=== PATIENT | male | born 1985 | race Caucasian/White ===

== ENCOUNTER 2016-03-22 08:59 | Emergency (ER) | payer SELFPAY ==
[~2016-03-22] VITALS: Ht 167.6 cm; Wt 85.0 kg
[~2016-03-22 08:59] MED LIST: TRAM50 PO; Z.0.NO CURRENT MEDS
[2016-03-22 09:00] VITALS: BP 139/69; PULSE 70; RESP 16; TEMP 98.2; O2SAT 100
--- NOTE | 2016-03-22 09:23 | PD ---
HPI Chief Complaint: Skin Problem Time Seen by Provider: 09:22 Travel History International Travel<30 days: No Contact w/Intl Traveler<30days: No Traveled to known affect area: No History of Present Illness HPI 30-year-old male presents to the emergency Department with complaint of 2 open sores and peeling to his left middle finger 2 weeks. Works with [employer] and does not wear gloves. He has had multiple open sores and peeling to multiple fingers for the last 2 months. Denies paresthesias, loss of sensation, decreased range of motion, decreased strength to all fingers or extremities. Is up-to-date on his tetanus vaccination. Denies fever, chills , nausea, vomiting. Has been using Neosporin and Band-Aids to the affected areas with some improvement. Denies significant past medical history. No known allergies. No other modifying factors or associated signs and symptoms. History Past Medical Histgory Hx Cancer: No Social History Alcohol Use: Yes (OCCASSIONALLY) Tobacco Use: Yes (1 PPD, chewing ) Allergies-Medications (Allergen,Severity, Reaction): Coded Allergies: No Known Allergies (Verified , 08/23/09) Reported Meds & Prescriptions Reported Meds & Active Scripts Active Ultram (Tramadol HCl) 50 Mg Tab 1 Tab PO Q4-6HPRN FOR PAIN Reported No Current Meds (Miscellaneous Medication) [facility] Review of Systems Except as stated in HPI: all other systems reviewed are Neg Physical Exam Narrative GENERAL: Well-nourished, well-developed male patient, in no acute distress; afebrile, nontoxic-appearing SKIN: Warm and dry. Left middle finger with 2 wounds that appear to be consistent with superficial chemical erwin that are dry and healing; without erythema, edema, drainage; no signs of infection. The left middle finger and other multiple fingers on both hands are dry and with peeling skin; no signs of cellulitis or infection to any areas. HEAD: Atraumatic. Normocephalic. EYES: Pupils equal and round. No scleral icterus. No injection or drainage. ENT: Mucosa pink and moist. Airway patent. NECK: Trachea midline. CARDIOVASCULAR: Regular rate. RESPIRATORY: No accessory muscle use. GASTROINTESTINAL: Flat. MUSCULOSKELETAL: No obvious deformities. No clubbing. No cyanosis. No edema. NEUROLOGICAL: Awake and alert. Oriented 3. No obvious cranial nerve deficits. Motor grossly within normal limits. Normal speech. PSYCHIATRIC: Appropriate mood and affect; insight and judgment normal. Data Data Last Documented VS Vital Signs Date Time Temp Pulse Resp B/P Pulse Ox O2 Delivery O2 Flow Rate FiO2 03/22/16 09:14 78 88 03/22/16 09:00 98.2 139/69 100 Room Air MDM Medical Screen Exam Complete: Yes Emergency Medical Condition: No Differential Diagnosis Chemical skin burn, cellulitis, abrasion Narrative Course 30-year-old male physical exam consistent with 2 small areas to the left middle finger that are consistent with a chemical burn. The area and finger is without signs of infection and is dry and healing well. Patient is afebrile. He denies fever, chills, nausea, vomiting. Patient has multiple fingers that are dry and peeling secondary to using [place] while at work and not wearing gloves. I offered to provide the patient with wound care and declined at this time. Vital signs are stable and the patient is stable for outpatient follow-up and treatment. The patient has no urgent or emergent medical complaints. There is no emergent or urgent medical need at this time. I instructed the patient to follow up with their primary care provider. A medical screening exam was performed: At the time of evaluation the presenting medical condition was determined not to be of an emergent nature. The patient was given the option of receiving additional care, but declined. Patient was given options for additional community resources from which to obtain care. The Patient Has Been advised to seek medical attention for their presenting complaint. The patient has been advised to return to the ER at any time if an emergent condition develops. Primary Impression: Encounter for medical screening examination Condition: Stable Rohini Vallejo Mar 22, 2016 09:23
== END 2016-03-22 09:38 | disposition left against medical advice (07) ==
LOC: NEPB 08:59
DX: T60.3X1A Toxic effect of herbicides and fungicides, accidental (unintentional), initial encounter (principal); T23.422A Corrosion of unspecified degree of single left finger (nail) except thumb, initial encounter
CPT/HCPCS: 99281

== ENCOUNTER 2016-10-08 08:45 | Emergency (ER) | payer SELFPAY ==
[~2016-10-08] VITALS: Ht 167.6 cm; Wt 81.0 kg
[2016-10-08 08:48] VITALS: BP 135/61; PULSE 62; RESP 16; TEMP 97.3; O2SAT 100
--- NOTE | 2016-10-08 09:05 | PD ---
HPI Chief Complaint: Bite or Sting Time Seen by Provider: 08:57 Travel History International Travel<30 days: No Contact w/Intl Traveler<30days: No Traveled to known affect area: No History of Present Illness HPI This is a 31-year-old male who presents to the emergency department with swelling involving his left hand following having been stung by a wasp or bee yesterday around 3 PM. He continues to have some swelling today. He denies any shortness of breath or other symptoms. He took Benadryl last night but hasn 't taken anything today. PFSH Past Medical History Blood Disorders: No Depression: Yes Cancer: No Cardiovascular Problems: No Diminished Hearing: No Endocrine: No Gastrointestinal Disorders: No Genitourinary: No Immune Disorder: No Implanted Vascular Access Dvce: No Musculoskeletal: Yes ( SHOULDER - RIGHT NEEDS SURGERY) Neurologic: No Reproductive: No Respiratory: No Past Surgical History Abdominal Surgery: No Cardiac Surgery: No Neurologic Surgery: No Thoracic Surgery: No Other Surgery: No Social History Alcohol Use: Yes (OCCASSIONALLY) Tobacco Use: Yes (chewing ) Substance Use: Yes (history of marijuana, crack use) Allergies-Medications (Allergen,Severity, Reaction): Coded Allergies: No Known Allergies (Verified , 10/08/16) Reported Meds & Prescriptions Reported Meds & Active Scripts Active No Active Prescriptions or Reported Medications Review of Systems General / Constitutional: No: Fever, Chills Respiratory: No: Shortness of Breath Physical Exam Narrative GENERAL: Well-appearing, no acute distress, nontoxic SKIN: Swelling of the dorsal aspect of the left hand with a sting yousif proximal to the first MCP, no warmth or erythema. HEAD: Atraumatic. Normocephalic. ENT: No nasal bleeding or discharge. Moist mucous membranes VASCULAR: 2+ left radial pulse with normal capillary refill. MUSCULOSKELETAL: No obvious deformities. No clubbing. No cyanosis. No edema. NEUROLOGICAL: Awake and alert. No obvious cranial nerve deficits. Motor grossly within normal limits. Normal speech. PSYCHIATRIC: Appropriate mood and affect; insight and judgment normal. Data Data Last Documented VS Vital Signs Date Time Temp Pulse Resp B/P (MAP) Pulse Ox O2 Delivery O2 Flow Rate FiO2 10/08/16 08:56 16 10/08/16 08:48 97.3 62 135/61 (85) 100 MDM Medical Decision Making Medical Screen Exam Complete: Yes Emergency Medical Condition: No Differential Diagnosis wasp sting, bee sting, allergic reaction, cellulitis Narrative Course This is a 31-year-old male who presents with some swelling following beer wasp sting yesterday. He's been taking Benadryl for it. He has a benign exam. I don't think this reflects a medical emergency as he has no systemic signs of allergic reaction. Patient was medically screened. He was advised to return if he develops fever, chills or worsening swelling. He was given information regarding [facility]. Diagnosis Primary Impression: Encounter for medical screening examination Scripts No Active Prescriptions or Reported Meds Dulce Cano MD Oct 08, 2016 09:04
== END 2016-10-08 09:06 | disposition left against medical advice (07) ==
LOC: PHED 08:45
DX: R22.32 Localized swelling, mass and lump, left upper limb (principal); Z72.0 Tobacco use; Z86.59 Personal history of other mental and behavioral disorders; Z87.39 Personal history of other diseases of the musculoskeletal system and connective tissue; W57.XXXA Bitten or stung by nonvenomous insect and other nonvenomous arthropods, initial encounter
CPT/HCPCS: 99281

== ENCOUNTER 2017-03-08 17:17 | Emergency (ER) | payer SELFPAY ==
[~2017-03-08] VITALS: Ht 167.6 cm; Wt 81.7 kg
[2017-03-08 17:36] VITALS: BP 139/85; PULSE 74; RESP 16; TEMP 98.6; O2SAT 99
[2017-03-08] MEDS ORDERED: BACT800T5 PO (18:17)
[2017-03-08] MEDS ORDERED: CEPH-460 PO (18:17)
--- NOTE | 2017-03-08 18:19 | PD ---
HPI Chief Complaint: Skin Problem Time Seen by Provider: 18:11 Travel History International Travel<30 days: No Contact w/Intl Traveler<30days: No Traveled to known affect area: No History of Present Illness HPI 31-year-old male presents for evaluation of an area of skin redness to the posterior right ankle. He reports that 2 days ago he was punctured through his sock by a foreign. He reports that it appeared that he pulled the thorn out in its entirety. Since then he has SOME soreness in skin redness at the site of the puncture wound. Pain is a soreness which is worse with palpation or dorsiflexion. Denies any fevers, chills, purulent drainage, foreign body sensation. He has no other complaints at this time. PFSH Past Medical History Blood Disorders: No Depression: Yes Cancer: No Cardiovascular Problems: No Diminished Hearing: No Endocrine: No Gastrointestinal Disorders: No Genitourinary: No Immune Disorder: No Implanted Vascular Access Dvce: No Musculoskeletal: Yes ( SHOULDER - RIGHT NEEDS SURGERY) Neurologic: No Reproductive: No Respiratory: No Past Surgical History Abdominal Surgery: No Cardiac Surgery: No Neurologic Surgery: No Thoracic Surgery: No Other Surgery: No Social History Alcohol Use: Yes (OCCASSIONALLY) Tobacco Use: Yes (chewing ) Substance Use: Yes (history of marijuana, crack use) Allergies-Medications (Allergen,Severity, Reaction): Coded Allergies: No Known Allergies (Verified Adverse Reaction, Unknown, 03/08/17) Reported Meds & Prescriptions Reported Meds & Active Scripts Active Keflex (Cephalexin) 500 Mg Cap 500 Mg PO Q8H Bactrim DS (Sulfamethoxazole-Trimethoprim) 800-160 Mg Tab 1 Tab PO BID Review of Systems General / Constitutional: No: Fever, Chills Skin: Positive Other (positive for skin redness, pain) Physical Exam Narrative GENERAL: Well-nourished male in no acute distress SKIN: Warm and dry. 2 cm area of mild erythema to the posterior right ankle overlying the Achilles tendon. Small puncture wound. No palpable foreign body. Extremities: Skin as noted above with no palpable foreign bodies. The patient maintains full dorsi and plantar flexion of the right ankle. Distal sensation is preserved. 2+ dorsalis pedis pulse. Data Data Last Documented VS Vital Signs Date Time Temp Pulse Resp B/P (MAP) Pulse Ox O2 Delivery O2 Flow Rate FiO2 03/08/17 17:36 98.6 74 16 139/85 (103) 99 Orders Orders Tetanus/Diphtheria Tox Adult (Tetanus/Di (03/08/17 18:30) MDM Medical Decision Making Medical Screen Exam Complete: Yes Emergency Medical Condition: Yes Medical Record Reviewed: Yes Differential Diagnosis Cellulitis, foreign body reaction, retained foreign body, puncture wound Narrative Course The patient has an area of cellulitis to the posterior right ankle overlying the Achilles tendon secondary to a puncture wound from a thorn 2 days ago. He self reports that it appeared that he pulled the thorn out its entirety. There is no palpable foreign body and I don't feel that incisional exploration of the skin overlying the Achilles tendon would be warranted in this situation. I did recommend follow-up next week with his primary care physician as if his symptoms persist that he may require referral to cost accounting clerk orthopedist to discuss surgical exploration. I also discussed signs and symptoms of worsening infection that would warrant returning to the emergency room. Tetanus status updated. He is stable for discharge. Diagnosis Primary Impression: Cellulitis of right ankle Additional Instructions: Medication as prescribed. Warm compresses several times a day 15 minutes at a time. Follow-up next week with primary care physician. Return for any acutely new or worsening symptoms. Med/Other Pt SpecificInfo: Prescription(s) given Scripts Cephalexin (Keflex) 500 Mg Cap 500 MG PO Q8H for Infection, #30 CAP 0 Refills Prov: Nury Alvarez MD 03/08/17 Sulfamethoxazole-Trimethoprim (Bactrim DS) 800-160 Mg Tab 1 TAB PO BID for Infection, #20 TAB 0 Refills Prov: Nury Alvarez MD 03/08/17 Disposition: 01 DISCHARGE HOME Condition: Stable Jeff Greenwood Mar 08, 2017 18:19
[2017-03-08] MEDS ORDERED: TETANUS/DIPHTHERIA TOXOID ADULT 0.5 ML VIAL IM ONE (18:30)
== END 2017-03-08 18:40 | disposition home or self-care (01) ==
LOC: PHEFT 17:17
DX: L03.115 Cellulitis of right lower limb (principal); F17.220 Nicotine dependence, chewing tobacco, uncomplicated; Z23 Encounter for immunization
CPT/HCPCS: 90471; 90714

== ENCOUNTER 2017-06-25 15:26 | Emergency (ER) | payer SELFPAY ==
[~2017-06-25] VITALS: Ht 167.6 cm; Wt 82.0 kg
[~2017-06-25 15:26] MED LIST changes: +BACT800T5 PO; +CEPH-460 PO; -TRAM50 PO; -Z.0.NO CURRENT MEDS
[2017-06-25 15:37] VITALS: BP 159/76; PULSE 75; RESP 16; TEMP 98.1; O2SAT 97
--- NOTE | 2017-06-25 17:13 | PD ---
HPI Chief Complaint: Laceration/Skin Injury Time Seen by Provider: 16:02 Travel History International Travel<30 days: No Contact w/Intl Traveler<30days: No Traveled to known affect area: No History of Present Illness HPI 32-year-old male here with a laceration to his right eyebrow. Patient fell while ice skating injuring his face on the ice. There was no loss of consciousness. Patient is not anticoagulated. He denies any facial bone pain is mild pain. Mild pain at the site of the laceration. No visual changes. No headache. No neck pain. No paresthesia or weakness of the extremities. PFSH Past Medical History Blood Disorders: No Depression: Yes Cancer: No Cardiovascular Problems: No Diminished Hearing: No Endocrine: No Gastrointestinal Disorders: No Genitourinary: No Immune Disorder: No Implanted Vascular Access Dvce: No Musculoskeletal: Yes ( SHOULDER - RIGHT NEEDS SURGERY) Neurologic: No Reproductive: No Respiratory: No Immunizations Current: Yes Past Surgical History Abdominal Surgery: No Cardiac Surgery: No Neurologic Surgery: No Thoracic Surgery: No Other Surgery: No Social History Alcohol Use: Yes (OCCASSIONALLY) Tobacco Use: Yes (chewing ) Substance Use: Yes (denies) Allergies-Medications (Allergen,Severity, Reaction): Coded Allergies: No Known Allergies (Verified Adverse Reaction, Unknown, 06/25/17) Reported Meds & Prescriptions Reported Meds & Active Scripts Active Review of Systems Except as stated in HPI: all other systems reviewed are Neg HENT: No: Headaches Cardiovascular: No: Chest Pain or Discomfort Gastrointestinal: No: Abdominal Pain Neurologic: No: Weakness Physical Exam Narrative GENERAL: Alert and well-appearing 32-year-old male SKIN: Small hematoma with 2 cm laceration to the right brow. HEAD: Normocephalic. No facial bone tenderness EYES: Pupils equal and round. EOMs intact. No injection or drainage. ENT: No nasal bleeding or discharge. Mucous membranes pink and moist. NECK: Trachea midline. No cervical spine tenderness CARDIOVASCULAR: Regular rate and rhythm. RESPIRATORY: No accessory muscle use. Clear to auscultation. Breath sounds equal bilaterally. GASTROINTESTINAL: Abdomen soft, non-tender, nondistended. Hepatic and splenic margins not palpable. MUSCULOSKELETAL: Extremities without clubbing, cyanosis, or edema. No obvious deformities. NEUROLOGICAL: Awake and alert. No obvious cranial nerve deficits. Motor grossly within normal limits. Five out of 5 muscle strength in the arms and legs. Normal speech. PSYCHIATRIC: Appropriate mood and affect; insight and judgment normal. Data Data Last Documented VS Vital Signs Date Time Temp Pulse Resp B/P (MAP) Pulse Ox O2 Delivery O2 Flow Rate FiO2 06/25/17 15:37 98.1 75 16 159/76 (103) 97 MDM Medical Decision Making Medical Screen Exam Complete: Yes Emergency Medical Condition: Yes Differential Diagnosis Facial laceration, facial contusion, facial bone fracture Narrative Course 32-year-old male here with laceration to the right brow. He has a normal neurologic exam. Laceration repair performed. Patient tolerated procedure well. He is stable and ready for discharge. Procedures Procedure Narrative LACERATION LOCATION: RIGHT EYEBROW LENGTH: 2 cm NUMBER OF STITCHES/VAMSI: 4 REPAIR: The area of the laceration was prepped with Betadine and sterilely draped. The laceration was infiltrated with 1% lidocaine. The wound was copiously irrigated and explored without evidence of foreign body, tendon injury or neurovascular injury. The wound was closed using 5-0 Ethilon. This was a single layer repair. A sterile dressing was applied. The patient was advised to keep the dressing clean and dry. Patient tolerated the procedure well. Diagnosis Primary Impression: Facial laceration Qualified Codes: S01.81XA - Laceration without foreign body of other part of head, initial encounter Referrals: Primary Care Physician Additional Instructions: Sutures need to be removed in 5-7 days. Tylenol or ibuprofen as needed for pain. Return if he develops severe headache, repeated vomiting, visual changes Disposition: 01 DISCHARGE HOME Condition: Stable Sanjana Espinosa June 25, 2017 17:13
== END 2017-06-25 17:23 | disposition home or self-care (01) ==
LOC: PHEFT 15:26
DX: S01.111A Laceration without foreign body of right eyelid and periocular area, initial encounter (principal); Y93.21 Activity, ice skating; V00.211A Fall from ice-skates, initial encounter
CPT/HCPCS: 12011